=== PATIENT | male | born 1995 | race American Indian/Alaskan Native ===

== ENCOUNTER 2021-01-04 11:49 | Emergency (ER) | payer SELFPAY ==
[2021-01-04] MEDS ORDERED: SODIUM CHLORIDE 0.9% 1000 ML 1,000 ML IV ONE (13:17)
--- NOTE | 2021-01-04 13:21 | Emergency Department Report ---
ED Syncope HPI - General Chief Complaint: Syncope Stated Complaint: PASSED OUT, LIGHT HEADED, BLURRED VISION Time Seen by Provider: 01/04/21 13:16 - History of Present Illness Initial Comments: 25-year-old male who who reports no significant past history presents to the ER today with complaints of a syncopal episode. Patient states that around 830 this morning, while working, he states that he was moving a garcia size mattress from a house, and had just loaded onto a trailer. He states that while he was putting the mattress down into the trailer, he started to feel dizzy, lightheaded and short of breath and he states the next thing he knew he was waking up off the ground. He states that his worker reported to him that he was also shaking all over and his eyes had rolled into the back of his head. He states that the worker told him that the syncopal episode was brief, exact amount of time unknown. Patient states that when he woke up he was a little confused as to what happened, he was diaphoretic, and he noticed he had peed on himself. He denies any biting of the tongue or foaming of the mouth. He states that prior to starting work today the only thing that he noticed was he woke up with heartburn. He states currently he has no symptoms. He denies any alcohol use, he states he smokes marijuana but denies any other illicit drug use. Timing/Prior Episodes: single episode today Precipitating Factors: Positive: lightheadedness, other (SOB) Loss of Consciousness: brief (seconds) - Related Data Allergies/Adverse Reactions: Allergies No Known Allergies Allergy (Unverified 01/04/21 12:33) ED Review of Systems ROS: Stated complaint: PASSED OUT, LIGHT HEADED, BLURRED VISION Other details as noted in HPI Comment: All other systems reviewed and negative Constitutional: denies: chills, fever Eyes: denies: eye pain, eye discharge, vision change ENT: denies: ear pain, throat pain, dental pain, hearing loss, epistaxis, congestion Respiratory: shortness of breath. denies: cough, orthopnea, SOB with exertion, SOB at rest, wheezing Cardiovascular: chest pain ("heart burn" this morning prior to incident). denies: palpitations, edema, syncope, paroxysmal nocturnal dyspnea Gastrointestinal: denies: abdominal pain, nausea, diarrhea, constipation, hematemesis, melena, hematochezia Genitourinary: denies: urgency, dysuria, frequency, hematuria, discharge, testicular pain, testicular mass Musculoskeletal: denies: back pain, joint swelling, arthralgia, myalgia Skin: denies: rash, lesions, change in color, change in hair/nails, pruritus, other Neurological: other (syncope, dizzy, lightheaded). denies: headache, weakness, numbness, paresthesias, confusion, abnormal gait, vertigo Psychiatric: denies: anxiety, depression, auditory hallucinations, visual hallucinations, homicidal thoughts, suicidal thoughts Hematological/Lymphatic: denies: easy bleeding, easy bruising, swollen glands ED Past Medical Hx - Past Medical History Previous Medical History?: No - Surgical History Past Surgical History?: Yes Additional Surgical History: Left leg thigh - Social History Smoking Status: Current Every Day Smoker Substance Use Type: Marijuana ED Physical Exam - General Limitations: No Limitations General appearance: alert, in no apparent distress - Head Head exam: Present: atraumatic, normocephalic, normal inspection - Eye Eye exam: Present: EOMI. Absent: scleral icterus, conjunctival injection, nystagmus, periorbital swelling, periorbital tenderness Pupils: Present: other (pupils dilated but equally round and reactive to light) - ENT ENT exam: Present: normal exam, normal orophraynx, mucous membranes moist, TM's normal bilaterally - Neck Neck exam: Present: normal inspection, full ROM. Absent: meningismus - Respiratory Respiratory exam: Present: normal lung sounds bilaterally. Absent: respiratory distress - Cardiovascular Cardiovascular Exam: Present: regular rate, normal rhythm, normal heart sounds - GI/Abdominal GI/Abdominal exam: Present: soft. Absent: distended, tenderness, guarding, rebound - Extremities Exam Extremities exam: Present: normal inspection, full ROM. Absent: tenderness, calf tenderness - Neurological Exam Neurological exam: Present: alert, oriented X3, CN II-XII intact, normal gait - Psychiatric Psychiatric exam: Present: normal affect, normal mood - Skin Skin exam: Present: intact ED Course Vital Signs 01/04/21 01/04/21 12:36 17:06 Temperature 98.5 F 98.7 F Pulse Rate 61 65 Respiratory 20 18 Rate Blood Pressure 147/97 Blood Pressure 147/104 [Right] O2 Sat by Pulse 100 99 Oximetry ED Medical Decision Making - Lab Data Result diagrams: 01/04/21 13:58 01/04/21 13:58 - EKG Data Rate: bradycardia (59) - EKG Data Interpretation: no acute changes - Radiology Data Radiology results: report reviewed Patient: KIMBERLY FELIX MR#: [id number] 8 : 1995 Acct:[id number] Age/Sex: 25 / M ADM Date: 01/04/21 Loc: ED Attending Dr: Ordering Physician: REILLY HSIEH Date of Service: 01/04/21 Procedure(s): XR chest routine 2V Accession Number(s): [id number] cc: REILLY HSIEH Fluoro Time In Minutes: CHEST 2 VIEWS INDICATION / CLINICAL INFORMATION: Syncope. COMPARISON: None available. FINDINGS: SUPPORT DEVICES: None. HEART / MEDIASTINUM: No significant abnormality. LUNGS / PLEURA: No significant pulmonary or pleural abnormality. No pneumothorax. ADDITIONAL FINDINGS: No significant additional findings. IMPRESSION: 1. No acute cardiopulmonary abnormality. Signer Name: Chris Oseguera MD Signed: 01/04/2021 2:00 PM Workstation Name: [id number] Transcribed By: SS Dictated By: CHRIS OSEGUERA Electronically Authenticated By: CHRIS OSEGUERA Signed Date/Time: 01/04/21 1400 DD/ 1400 TD/TT: Patient: KIMBERLY FELIX MR#: [id number] 8 : 1995 Acct:[id number] Age/Sex: 25 / M ADM Date: 01/04/21 Loc: ED Attending Dr: Ordering Physician: REILLY HSIEH Date of Service: 01/04/21 Procedure(s): CT head/brain wo con Accession Number(s): [id number] cc: REILLY HSIEH CT HEAD WITHOUT CONTRAST INDICATION / CLINICAL INFORMATION: Syncope. TECHNIQUE: All CT scans at this location are performed using CT dose reduction for ALARA by means of automated exposure control. COMPARISON: None available. FINDINGS: HEMORRHAGE: None. EXTRA-AXIAL SPACES: Normal in size and morphology for the patient's age. VENTRICULAR SYSTEM: Normal in size and morphology for the patient's age. CEREBRAL PARENCHYMA: No significant abnormality. No acute territorial infarct. MIDLINE SHIFT OR HERNIATION: None. CEREBELLUM / BRAINSTEM: No significant abnormality. ORBITS: Normal as visualized. SOFT TISSUES of HEAD: No significant abnormality. CALVARIUM: No significant abnormality. PARANASAL SINUSES / MASTOID AIR CELLS: Normal as visualized. ADDITIONAL FINDINGS: None. IMPRESSION: 1. No acute intracranial abnormality. Signer Name: Chris Oseguera MD Signed: 01/04/2021 2:01 PM Workstation Name: [id number] Transcribed By: SS Dictated By: CHRIS OSEGUERA Electronically Authenticated By: CHRIS OSEGUERA Signed Date/Time: 01/04/21 1401 DD/ 1400 TD/TT: - Medical Decision Making 1340: Orthostatic Vital signs: Laying -- 138/84 HR 60 Sitting -- 131/85 HR 58 Standing -- 143/94 HR 65 Patient presented to ED with complaints of having a syncopal episode while at work today. Upon arrival to ED Pt denied any symptoms. His head CT shows nothing acute. His labs were unremarkable including 2 neg trop and 2 normal EKG without acute chaanges. UDS positive marijuana but otherwise normal. Chest x-ray shows nothing acute. He is not orthostatic. he patient is neurologically intact, has a normal mental status and is ambulatory in the ER. He has also been observed ambulatory in the ER and has been playing and talking on his cell phone. His repeat vital signs stable. He is not toxic or ill-appearing. His history, exam, diagnostic testing and current condition does not suggest that this patient is having acute CA, PE (PERC 0), significant arrhythmia, unstable angina, stroke/TIA, significant vascular events, gastrointestinal bleeding, sepsis or other significant pathology that would warrant further testing, continued ED treatment, admission or cardiology or other specialist consultation at this time. Discussed case with Dr Yanick alvarez, agree with work up and pt stable for d/c. Discussed labs/imaging results with patient. Exact cause of his symptoms unclear but he will be given referral to local PCP for close f/u but he understands to return if his symptoms worsens. Pt expressed understanding of instructions and agreed with plan. Pt stable at time of d/c. Critical care attestation.: If time is entered above; I have spent that time in minutes in the direct care of this critically ill patient, excluding procedure time. ED Disposition Clinical Impression: Syncope Disposition: DC- TO HOME OR SELFCARE Is pt being admited?: No Does the pt Need Aspirin: No Condition: Stable Instructions: Syncope, [id number], Syncope (ED) Additional Instructions: Recommend rest,and drinking lots of water for the next couple days. I recommend follow up with PCP listed on your discharge instructions next week. Return to ED if symptoms changes or worsens in anyway. Referrals: BRENDAN TRIPATHI MD [Staff Physician] - 3-5 Days (Primary Care physician ) Time of Disposition: 17:00
--- NOTE | 2021-01-04 14:05 | XRay Report ---
CHEST 2 VIEWS INDICATION / CLINICAL INFORMATION: Syncope. COMPARISON: None available. FINDINGS: SUPPORT DEVICES: None. HEART / MEDIASTINUM: No significant abnormality. LUNGS / PLEURA: No significant pulmonary or pleural abnormality. No pneumothorax. ADDITIONAL FINDINGS: No significant additional findings. IMPRESSION: 1. No acute cardiopulmonary abnormality. Signer Name: Jamey Oseguera MD Signed: 01/04/2021 2:00 PM Workstation Name: [id number]
--- NOTE | 2021-01-04 14:06 | Cat Scan Report ---
CT HEAD WITHOUT CONTRAST INDICATION / CLINICAL INFORMATION: Syncope. TECHNIQUE: All CT scans at this location are performed using CT dose reduction for ALARA by means of automated e xposure control. COMPARISON: None available. FINDINGS: HEMORRHAGE: None. EXTRA-AXIAL SPACES: Normal in size and morphology for the patient's age. VENTRICULAR SYSTEM: Normal in size and morphology for the patient's age. CEREBRAL PARENCHYMA: No significant abnormality. No acute territorial infarct. MIDLINE SHIFT OR HERNIATION: None. CEREBELLUM / BRAINSTEM: No significant abnormality. ORBITS: Normal as visualized. SOFT TISSUES of HEAD: No significant abnormality. CALVARIUM: No significant abnormality. PARANASAL SINUSES / MASTOID AIR CELLS: Normal as visualized. ADDITIONAL FINDINGS: None. IMPRESSION: 1. No acute intracranial abnormality. Signer Name: Jamey Oseguera MD Signed: 01/04/2021 2:01 PM Workstation Name: [id number]
[2021-01-04 14:12] LABS: Basophils # (Auto) 0.1 K/mm3 (0.0-0.1); Basophils % (Auto) 1.5 % (0.0-1.8); Eosinophils # (Auto) 0.1 K/mm3 (0.0-0.4); Eosinophils % (Auto) 1.9 % (0.0-4.3); Hematocrit 45.8 % (35.5-45.6); Hemoglobin 15.4 gm/dl (11.8-15.2); Lymphocytes # (Auto) 1.5 K/mm3 (1.2-5.4); Lymphocytes % (Auto) 27.5 % (13.4-35.0); Mean Corpuscular HGB Conc 34 % (32-34); Mean Corpuscular Volume 83 fl (84-94); Monocytes # (Auto) 0.5 K/mm3 (0.0-0.8); Monocytes % (Auto) 9.8 % (0.0-7.3); Platelet Count 212 K/mm3 (140-440); Red Blood Count 5.53 M/mm3 (3.65-5.03); Red Cell Distribution Width 14.3 % (13.2-15.2)
[2021-01-04 14:28] LABS: INR 1.01 (0.87-1.13)
[2021-01-04 14:35] LABS: Creatine Kinase MB 3.3 ng/mL (0.0-4.0)
[2021-01-04 14:39] LABS: Alanine Aminotransferase 37 units/L (7-56); Albumin 4.5 g/dL (3.9-5); BUN/Creatinine Ratio 12; Blood Urea Nitrogen 12 mg/dL (9-20); Calcium 9.7 mg/dL (8.4-10.2); Hemolysis Index 3
[2021-01-04 16:59] LABS: Amphetamine Screen,Urine Negative; Benzodiazepines Screen,Urine Negative; Cocaine Screen,Urine Negative; Methadone Screen,Urine Negative; Opiate Screen,Urine Negative
[2021-01-04 17:07] VITALS: BP 147/97
[2021-01-04 17:11] LABS: Cannabinoid Screen,Urine Positive
--- NOTE | 2021-01-07 10:13 | Electrocardiograph Report ---
[facility] Test Date: 2021-01-04 Test Time: 13:30:12 Pat Name: KIMBERLY FELIX Department: Room: Gender: M Silverer: MAYRA : 1995 Requested By: REILLY HSIEH Order Number: [id number] Reading MD: Eduardo Ashton Measurements Intervals [place] Rate: 59 P: 25 NC: 143 QRS: 62 QRSD: 101 T: 32 QT: 390 QTc: 388 Interpretive Statements Slow sinus arrhythmia No previous ECG available for comparison Electronically Signed On 01-07-2021 10:13:21 EDT by Eduardo Ashton
--- NOTE | 2021-01-07 10:18 | Electrocardiograph Report ---
[facility] Test Date: 2021-01-04 Test Time: 16:05:53 Pat Name: KIMBERLY FELIX Department: Room: Gender: M Optometric Tech: MAYRA RENEB: 1995 Requested By: REILLY HSIEH Order Number: [id number] Reading MD: Eduardo Ashton Measurements Intervals [place] Rate: 59 P: 37 CA: 144 QRS: 71 QRSD: 102 T: 37 QT: 389 QTc: 387 Interpretive Statements Sinus bradycardia No significant change from 3 1/2 hours ago. Electronically Signed On 01-07-2021 10:17:51 EDT by Eduardo Ashton
== END 2021-01-04 17:09 | disposition home or self-care (01) ==
LOC: ED 11:49
DX: R55 Syncope and collapse (principal); F17.200 Nicotine dependence, unspecified, uncomplicated; F12.90 Cannabis use, unspecified, uncomplicated; Z98.890 Other specified postprocedural states; Z79.899 Other long term (current) drug therapy
CPT/HCPCS: 36415; 70450; 71046; 80053; 80307; 82550; 82553; 83735; 84484; 85025; 85610; 93005